=== PATIENT | male | born 1950 | race Caucasian/White ===

== ENCOUNTER 2019-12-25 13:00 | Inpatient (IN) | payer OTHER ==
[~2019-12-25] VITALS: Ht 175.3 cm; Wt 69.7 kg
[~2019-12-25 13:00] MED LIST: ALLEGRA; CIPROFLOXACIN500 M1 PO; CLONAZEPAM 0.50.5 M1 PO; NORCO 5-325 TA1 EACH PO; OMEPRAZOLE; SIMVASTATIN40 MG PO; SLEEP MEDICATION
[2019-12-25 13:01] VITALS: BP 129/83
[2019-12-25] MEDS ORDERED: ARICEPT10 M1 PO (13:16)
[2019-12-25] MEDS ORDERED: NAMENDA 10 MG T10 MG PO (13:17)
[2019-12-25] MEDS ORDERED: OMEPRAZOLE 20 M20 M1 PO (13:17)
[2019-12-25] MEDS ORDERED: LEXAPRO20 MG PO (13:17)
[2019-12-25] MEDS ORDERED: QUETIAPINE FUM200 M1 PO (13:18)
[2019-12-25] MEDS ORDERED: TYLENOL325 M1 PO (13:19)
[2019-12-25] MEDS ORDERED: DULCOLAX STOOL100 M1 PO (13:19)
[2019-12-25] MEDS ORDERED: XANAX 0.25 MG0.25 MG PO (13:20)
[2019-12-25 15:10] LABS: ABSOLUTE NEUTROPHILS 11.5 thou/uL (1.4-8.2); BASOPHILS 0.5 % (0.0-2.0); EOSINOPHILS 2.4 % (0.0-3.0); HEMOGLOBIN 12.4 gm/dL (14.0-18.0); LYMPHOCYTES 9.1 % (24.0-44.0); MCH 27.8 pg (26.0-34.0); MCHC 35.4 g/dL (28.0-37.0); MCV 78.5 fL (80.0-100.0); MONOCYTES 3.7 % (1.0-8.0); PLATELET COUNT 777 thou/uL (150-400); POLYS 84.3 % (36.0-66.0); RBC 4.46 mil/uL (4.50-6.00); RDW 30.3 % (10.5-14.5); WBC 13.7 thou/uL (4.0-11.0)
[2019-12-25 15:27] LABS: CALCIUM 8.8 mg/dL (8.5-10.1); POTASSIUM 3.9 mmol/L (3.5-5.1)
[2019-12-25 15:33] LABS: ALBUMIN 4.2 g/dL (3.4-5.0); TOTAL BILIRUBIN 1.7 mg/dL (0.2-1.0); TOTAL PROTEIN 6.9 g/dL (6.4-8.2)
[2019-12-25 15:42] LABS: ANISOCYTOSIS 3+
[2019-12-25 15:43] LABS: MACROCYTES 1+; MICROCYTES 2+
[2019-12-25 15:47] LABS: OVALOCYTES 2+
[2019-12-25 16:00] LABS: URINE BILIRUBIN NEGATIVE (Negative); URINE BLOOD NEGATIVE (Negative); URINE CLARITY CLEAR; URINE COLOR YELLOW; URINE GLUCOSE-RANDOM* NEGATIVE (Negative); URINE KETONES NEGATIVE (Negative); URINE LEUKOCYTES-REFLEX NEGATIVE (Negative); URINE NITRITE-REFLEX NEGATIVE (Negative); URINE PROTEIN (DIPSTICK) NEGATIVE (Negative); URINE SPECIFIC GRAVITY <= 1.005 (1.005-1.035); URINE UROBILINOGEN 0.2 E.U./dl (0.2-1.0)
[2019-12-25 16:10] LABS: AMP/METHAMP Negative (Negative); BARBITURATES Negative (Negative); BENZODIAZEPINES Negative (Negative); COCAINE Negative (Negative); METHADONE Negative (Negative); OPIATES Negative (Negative); PCP Negative (Negative)
--- NOTE | 2019-12-25 17:15 | NUR ---
FIRST ATTEMPT AT REPORT TO BEHAVIORAL HEALTH
[2019-12-25 17:58] VITALS: BP 126/74
--- NOTE | 2019-12-25 18:24 | NUR ---
1745 PATIENT ARRIVED VIA CART ACCOMPANIED BY EMERGENCY MEDICINE SPECIALIST AND DR RAMIREZ. TRANSPORTED TO BED X2 ASSIST WITH RESISTANCE FROM PATIENT. PATIENT IN BED WITH SIDERAILS UP X4. PATIENT REPOSITIONED FOR COMFORT. PATIENT COMBATIVE WITH STAFF. PATIENT REFUSES VS. NURSE UNABLE TO ASSESS AT TIME OF ADMIT. PATIENT ASLEEP IN BED AT THIS TIME WITH EYES CLOSED. BED ALARM ON. WILL CONTINUE TO OBSERVE AND REPORT OFF TO NEXT SHIFT. RECIEVED REPORT FROM ED DEPT AT 1830.
[2019-12-25 19:35] VITALS: BP 148/96
--- NOTE | 2019-12-26 04:26 | NUR ---
7 CARE TRANSFERED AT 1915 OBSERVED PT IN BED RESTING WITH EYES CLOSED. 193 PT SUPINE WITH EYES CLOSED RESTING, THE ADMIT QUESTION ARE LIMITED R/T PT SEDATION. PT VS MANUAL B/P LYING RIGHT ARM B/P 148/96, P 77, R 16, T 97.7, O2 SAT 95% RA RR EVEN AND NONLABORED. DURING SKIN ASSESSMENT NOTED CONTUSION BI-LAT UE AND LEFT FOREARM SKIN TEAR WITH STERI-STRIPS IN PLACES CLEAN, DRY AND INTACT. UPON AUSCULTATION PT LUNG FIEDLS CLEAR, HT S1, S2 RR, ABD ACTIVE IN ALL FOUR QUADS. PT CAP REFIL <2 SECS. ZERO ACUTE DISTRESS NOTED AT THIS TIME. APPROXIMATLEY 2200 ROUNDS NOTED PT FEET OVER BED RAIL AND BRIEFS OFF. DURING GETTING PT CLEAN AND DRESSES PT BECAME AGITATED THEN COMBATIVE WITH AGRESSION THEN SWUNG ON RN. HCP WAS CONSULTED AND ORDERS RECEIVED HALDOL7.5MG AND ATIVAN 1.5MG IM GIVEN IN ONE SHOT. PT WAS REPOSITION INTO A COMFORTABLE POSITION AND BED WAS IN LOWEST POSITION, LOCKED AND ALARM SET. DURING ROUNDS NOTED PT WAS RESTING WITH EYES CLOSED, RR EVEN AND NONLABORED ON RA. ZERO ACUTE DISTRESS NOTED. WILL CONTINUE TO MONITOR PER [facility] PROTOCOL.
[2019-12-26 09:02] VITALS: BP 157/77
--- NOTE | 2019-12-26 09:04 | NUR ---
ASH contacted Marilin Gaspar with [facility] at [phone]. ASH was told that Marilin does not come in until 10am. ASH left [facility]. ASH contacted pt's Ivelisse Kong; she is also his DPOA. She gave SW hx on pt. Pt is a twin. She is okay with pt's brother Pamela Kong obtaining information about pt. She also said that pt suffers from myelodysplastic syndrome and was dx in 2017. She said in addition to ephedrine pt has adverse reactions to lidocaine. ASH ensured she had 4 digit code. She also added Ivelisse as designated visitor. ASH and Ivelisse agreed that she should wait until Sunday to visit pt as that may upset him, but she does plan to call him. ASH team will continue to follow pt during his stay on this unit.
[2019-12-26 20:06] VITALS: BP 131/84
[2019-12-26 20:23] VITALS: BP 167/75
--- NOTE | 2019-12-27 02:35 | NUR ---
Care of patient assumed at 1915. Patient is sitting in day room in a wheelchair with lap wilda in place. Responds to name, but mumbles incomprehensibly when asked questions. Largely uncooperative, not allowing auscultation of heart, lungs, or bowel. Takes his shirt off and fights staff when trying to get him redressed. Does take HS meds crushhed in applesauce. Assisted to bed shortly after meds.
--- NOTE | 2019-12-27 10:28 | NUR ---
0700 ASSUMED CARE OF PATIENT, PATIENT SITTING IN DAYROOM WITH EYES CLOSED AT THAT TIME. PATIENT IS CALM AND QUIET. MEDICATIONS GIVEN IN OATMEAL CRUSHED WITHOUT DIFFICULTY. PATIENT ASSISTED WITH MEAL, REFUSING TO EAT AT TIMES THEN WHEN LEFT ALONE, A FEW MINUTES PATIENT WILL TAKE A FEW BITES. PATIENT RAISES VOICE AT TIMES AND TELLS GAMEMASTER TO LEAVE HIM ALONE. PATIENT CURSING WHEN ASKED QUESTIONS. UNABLE TO ASSESS AT THIS TIME. WILL CONTINUE TO OBSERVE.
[2019-12-27 13:28] VITALS: BP 159/85
--- NOTE | 2019-12-27 19:25 | NUR ---
AT 1415 OLANZAPINE 10MG IM GIVEN TO LEFT DELTOID FOR INCREASED AGGITATION PER DR'S ORDER. PATIENT SITTING IN WC ATTEMPTING TO GET OUT AND BEING AGGRESIVE WITH CARE. PATIENT DOES NOT LISTEN TO DIRECTION AND WORDS ARE MUMBLED AND DIFFICULTY TO UNDERSTAND. STAFF SITS WITH PATIENT WHILE ATTEMPTING TO GET OUT OF WC. CHAIR ALRM IN PLACE WITH LAP HARPER ON WITH OPENING TO THE FRONT.
[2019-12-27 19:56] VITALS: BP 145/92
--- NOTE | 2019-12-28 03:52 | NUR ---
patient aox1 confused and forgetful. patient incontinent this shift. pericare and barrier cream applied as needed. patient took meds with a lot of encouragement. patient encouraged fluids. patient in bed asleep at this time breathing regular and unlaboured.
[2019-12-28 06:50] LABS: ALBUMIN 3.8 g/dL (3.4-5.0); DIRECT BILIRUBIN 0.2 mg/dL (<0.1-0.2); TOTAL BILIRUBIN 1.8 mg/dL (0.2-1.0); TOTAL PROTEIN 6.6 g/dL (6.4-8.2)
[2019-12-28 08:48] VITALS: BP 159/73
--- NOTE | 2019-12-28 09:33 | NUR ---
0700 ASSUMED CARE OF PATIENT, PATIENT ASLEEP IN BED AT THAT TIME. UNABLE TO GIVE MEDS THIS AM, PATIENT SLEEPING AND UNABLE TO STAY AWAKE TO TAKE MEDS. WILL CONTINUE TO OBSERVE.
--- NOTE | 2019-12-28 13:16 | NUR ---
AT 1200 PM PATIENT BED ALARM SOUNDS OFF. STAFF X 2 IN ROOM, PATIENT UNSTEADY ON FEET. PATIENT CONFUSED AND AGITATED. PATIENT COMBATIVE WITH STAFF WITH CARES. PATIENT TO BATHROOM AND PATIENT WOULD NOT ALLOW STAFF TO HELP. PATIENT IN WC WITH LAP HARPER IN PLACE AND TAKEN TO DAYROOM FOR LUNCH. PATIENT GIVEN AM MEDICATIONS AT THIS TIME CRUSHED WITH FOOD. PATIENT ATE 10% OF MEAL WITH ASSISTANCE OF HIGH SCHOOL SPORTS COACH. PATIENT HALLUCINATING SPEAKING TO SOMEONE AND ARGUING. PATIENT STATES" LETS GO WE HAVE TO GET OUT OF HERE, THEY WILL KILL US HERE". PATIENT CONTINUES TO SIT IN CHAIR IN DAYROOM QUIETLY AT THIS TIME.
--- NOTE | 2019-12-28 19:30 | NUR ---
Care of patient assumed at 1915. Patient is sitting in wheelchair in day room. Appears to be attending to VH/AH, yelling at someone. Unable to participate in interview due to cognitive functioning. Does allow auscultation of heart, lungs and bowel. HS, LS, BS all wNL. Takes HS meds crushed and mixed in yogurt. Remains in day room in wheel chair, continuously attending to hallucnations. Becomes frantic with increasing agitation. PRN Zyprexa IM administered. Patient continues agitated behavior. Placed in recliner to increase comfort. Patient falls asleep within minutes.
[2019-12-28 19:55] VITALS: BP 148/82
--- NOTE | 2019-12-28 21:30 | H ---
[facility] [place] [address] HISTORY AND PHYSICAL Name: BALDEMAR SUN Room #: 520A-A ADM IN M.R.#: [id number] Admission: 12/25/19 Attend Phys: Doug Flores DO Discharge: Date of : 50 Report #: [id number] THIS REPORT FOR: cc: VINNIE - Family physician unknown FAM - Family physician unknown Doug Flores DO ~ CC: Doug [place] unknown DATE OF SERVICE: 12/25/2019 INPATIENT PSYCHIATRIC EVALUATION ATTENDING PHYSICIAN: Doug Flores DO HISTORY OF PRESENT ILLNESS: The patient is a 69-year-old male admitted through the Emergency Room at [facility]. He was sent over from [facility]. The best information we have which is somewhat limited as there is a positive records from [facility] as he had normally been there barely 24 hours, has become increasingly more aggressive, Over the last several weeks, family placed him there. The prison did tell us that he was yelling, came to facility from home yesterday, combative. The patient is a full code at this time. Looks like there is a negative COVID-19 test from 12/24/2019. The patient was born and raised in [place], [place]. He has a twin brother. He did not have service. Also had a medical history as myelodysplastic syndrome diagnosed in 2017. 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 I will give the tried along a call. Also, they have been 17 years. Her number is [phone]. PAST MEDICAL HISTORY: Includes hyperlipidemia, also dementia. PAST SURGICAL HISTORY: Right great toe surgery, tooth extraction. IMMUNIZATION: Unknown immunization history. HOME MEDICATIONS: Include Aricept 10 mg oral at bedtime, Lexapro 20 mg oral daily, memantine 10 mg oral b.i.d., omeprazole 20 mg oral daily, Seroquel 200 mg immediate release at bedtime, stool softener, alprazolam is given 0.25 mg every 6 hours as needed for anxiety. ALLERGIES: EPHEDRINE. PRIMARY CARE PHYSICIAN: Dr. Richard Alvarado. [address] [address] HISTORY AND PHYSICAL Name: BALDEMAR SUN Room #: 520A-A [facility] [place] ..#: [id number] Admission: 12/25/19 Attend Phys: Doug Flores, DO Discharge: Date of : 50 Report #: [id number] SPECIALIST: Dr. Maurice Weiss. REVIEW OF SYSTEMS: Not possible due to poor cooperation. He required IM medication in the ER as well as nursing unit with 74.39 kilos. DIAGNOSTIC DATA: EKG showed sinus rhythm, rate of 82, no STEMI, QTC of 505 milliseconds with borderline prolonged PACs to PVCs noted by the ED physician. LABORATORY DATA: Other information, on hematology, white count 13.7 done on 12/25/2019, H and H 12.4 and 35.0, platelet count was high at 777. Absolute neutrophil count was high at 11.5. Chemistry: Sodium 135, potassium 3.9, chloride 101, bicarbonate 25, anion gap 9, BUN 12, creatinine 1.0, estimated GFR 74, glucose 105, calcium 8.8, total bilirubin 1.7, AST 26, ALT 21, alkaline phosphatase 68, total protein 6.9, albumin 4.2. Urinalysis is negative. UDS was negative. Serum alcohol was negative as well. PHYSICAL EXAMINATION: VITAL SIGNS: This moment, temperature 36.3, pulse 100, respirations 18, BP 157/77, O2 sat 96%. MUSCULOSKELETAL: Seated in wheelchair with a lap wilda in place. MENTAL STATUS EXAMINATION: This is a well-developed, somewhat ill-appearing male, keeping eyes shut even when he is awake. Attention impaired. Concentration impaired. Speech, expletives at times, intermittently spontaneous. Mood and affect, irritable, angry at times, congruent. Unable to assess well for suicidality or homicidality. Similarly, I believe he is delusional. Unclear if he is having active auditory or visual hallucinations. Memory known to be grossly impaired. Insight impaired, judgment impaired. Fund of knowledge well below average. FORMULATION: A 69-year-old male sent from nursing facility to combativeness, agitation. The patient has a history of dementia. Family is concerned that it is FTD more likely than Alzheimer's, which is certainly possible given the onset in the late 60s. DIAGNOSES: Major neurocognitive disorder, unspecified, with behavioral disturbance. ADDITIONAL DIAGNOSES: As follows: History of atrial fibrillation, rate controlled; leukocytosis, myelodysplastic syndrome. PLAN: Evaluate, stabilize, obtain collateral. ESTIMATED LENGTH OF STAY: 10-14 days. We will call today. CURRENT MEDICATIONS: Famotidine 20 mg p.o. daily, aspirin 325 mg p.o. daily, [facility] [address] [place] [address] HISTORY AND PHYSICAL Name: BALDEMAR SUN Room #: 520A-A ADM IN M.R.#: [id number] Admission: 12/25/19 Attend Phys: Doug Flores DO Discharge: Date of : 50 Report #: [id number] memantine 10 mg b.i.d., donepezil 10 mg p.o. at bedtime, docusate 100 mg p.o. b.i.d. for bowel motility, otherwise else PRNs. STRENGTHS: He is insured, has a who has DPOA, actively involved. WEAKNESSES: He has advanced dementia and multiple morbidities. Time spent on interview, review of records, coordination of care is 60 minutes. At least 50% of time was spent on counseling and coordination of care. <ELECTRONICALLY SIGNED> By: Doug Flores DO 12/28/19 2130 1045 1159 Doug Flores DO /nt
[2019-12-29 06:25] LABS: HEMATOCRIT 40.1 % (42.0-52.0); HEMOGLOBIN 12.7 gm/dL (14.0-18.0); MCH 25.4 pg (26.0-34.0); MCHC 31.6 g/dL (28.0-37.0); MCV 80.4 fL (80.0-100.0); RBC 4.99 mil/uL (4.50-6.00); WBC 21.5 thou/uL (4.0-11.0)
--- NOTE | 2019-12-29 07:26 | EKG ---
[facility] [place] [place] [address] ELECTROCARDIOGRAM REPORT Name: BALDEMAR SUN [facility].R.[facility] [id number] Admission: 12/25/19 Attend Phys: Doug Flores DO Discharge: Date of : 50 Report #: [id number] THIS REPORT FOR: cc: FAM - Family physician unknown FAM - Family physician unknown Salvador Alarcon MD [facility] THIS REPORT FOR: //name// [facility] ED Test Date: 2019-12-25 Test Time: 14:14:15 Pat Name: BALDEMAR SUN Department: Room: [facility] Gender: M Radiographic Technologist: . : 1950 Requested By: Brian Valdivia Order Number: [id number] MD: Salvador Alarcon Measurements Intervals [place] Rate: 82 P: MA: QRS: -18 QRSD: 106 T: -5 QT: 432 QTc: 505 Interpretive Statements Sinus rhythm with premature atrial and ventricular complexes Ventricular premature complex Borderline T abnormalities, anterior leads Baseline wander in lead(s) I,aVR,aVL No previous ECG available for comparison Electronically Signed On 12-29-2019 7:25:44 CDT by Salvador Alarcon [email or web address] <ELECTRONICALLY SIGNED> By: Salvador Alarcon MD, [facility] 12/29/19 0725 1414 1414 Salvador Alarcon MD, [facility] /EPI
[2019-12-29 07:48] VITALS: BP 137/66
--- NOTE | 2019-12-29 10:13 | NUR ---
0700 ASSUMED CARE OF PATIENT, PATIENT IN KYLE CHAIR IN DAYROOM AT THAT TIME. PATIENT CALLING OUT NAMES STATING "I NEED TO FIND HIM TO GET DONE". PATIENT UNABLE TO ANSWER QUESTIONS. SPEAKING WORD SALAD AT TIME. WOOL CARDER GIVES MEDICATION CRUSHED IN OATMEAL. PATIENT TAKES WELL. PATIENT SITTING IN KYLE CHAIR IN DAYROOM SLEEPING AT THIS TIME. WILL CONTINUE TO OBSERVE.
--- NOTE | 2019-12-29 12:14 | NUR ---
Pt CONTINUES TO BE UNABLE TO PARTICIPATE IN P.T. EVALUATION DUE TO NEUROCOGNITIVE BEHAVIORS. REQUEST NEW P.T. ORDER ONCE PT DEEMED ABLE TO PARTICIPATE IN THERAPEUTIC INTERVENTIONS COGNITIVE STATUS IMPROVES.
--- NOTE | 2019-12-29 14:53 | NUR ---
ASH spoke with Ivelisse Kong and provided her an update on [facility] visitor protocol. ASH also gave her an update on pt. She cannot understand how pt was fine a few days ago and talking and is now possible at end of life. ASH provided her psychoeducation on the disease process and that things can turn quickly for pt's suffering from a neurocog. disorder. She has mentioned that she wants to take pt home. ASH advised that if it is to a private residence that is fine, but the facility may not accept pt back without clearance from the doctor that he is no longer combative. She asked to speak with Dr. Flores. ASH told her she will relay this message. ASH provided Dr. Flores with an update. SW team will continue to follow pt during her stay on this unit.
--- NOTE | 2019-12-29 17:34 | NUR ---
PATIENT RESTED IN KYLE CHAIR OFF AND ON TODAY. OBSERVED PATIENT REACHING IN AIR HALLUCINATING TALKING WITH SOMEONE. PATIENT YELLS AT TIMES AND COMBATIVE WITH CARES. PATIENT SPEAKS IF ORDERING PEOPLE AROUND IN A JOB SITE. WILL CONTINUE TO OBSERVE
[2019-12-29 20:01] VITALS: BP 162/119
[2019-12-29 22:00] VITALS: BP 162/119
--- NOTE | 2019-12-30 00:49 | NUR ---
Assumed care of patient this pm shift. Patient sitting in the mileu in a reclining chair with peers. Patient in good spirits. Patient is alert and oriented to self only. Patient recieved a phone call earlier in the shift and was listening to the other end and perked up as he recognized the caller. Patient rambles when speaking and is mostly confused. Patient is a falls risk and has a yellow shirt on and yellow nonskid socks. Patient does not do as well with cares and gets very resistant with cares. Patients assessment shows clear breath sounds, hypoactive bowel sounds, and s1 s2 heard with auscultation. Patient takes medications crushed in yogurt. We will continue to monitor per hospital policy.
[2019-12-30 08:54] VITALS: BP 149/96
--- NOTE | 2019-12-30 10:51 | NUR ---
0700 ASSUMED CARE OF PATIENT, PATIENT SITTING IN KYLE CHAIR IN DAYROOM AT THAT TIME. PATIENT WITH EYES CLOSED. 0820 PATIENT AWAKE MEDICATIONS GIVEN CRUSHED IN APPLESAUCE. PATIENT ASSISTED BY STAFF WITH BREAKFAST, PATIENT ATE 95% OF MEAL. PATIENT SAYS GOOD MORNING TO DOCUMENT REVIEW SPECIALIST THEN WORD SALAD AFTER THAT. PATIENT UNABLE TO ANSWER QUESTIONS. VS STABLE. WILL CONTINUE TO OBSERVE.
[2019-12-30 20:13] VITALS: BP 140/72
--- NOTE | 2019-12-30 23:57 | NUR ---
Assumed care on 12/30/19 @ 19:15, in bed at the start of the shift, eyes closed, respirations even and unlabored, no distress noted. Bed in low position, bed alarm set, will continue to monitor q 12 minutes for patient safety.
--- NOTE | 2019-12-31 08:13 | NUR ---
PT SITTING IN DINING ROOM PT NEEDED ASSISTANCE WITH EATING. PT TOOK MEDS IN OATMEAL CRUSHED. PT DID TAKE ONE BITE OF OATMEAL, PT DIDN'T WANT ANY MORE OATMEAL. ATTEMPTED TO OFFER MILK, PT UNABLE TO DRINK OUT OF A STRAW. PT LUNGS CLEAR. PT DIDN'T APPEAR IN ANY DISTRESS.
[2019-12-31] MEDS ORDERED: DEPAKOTE SPRIN125 MG PO (11:56)
[2019-12-31] MEDS ORDERED: OLANZAPINE10 M2 IM (11:56)
[2019-12-31] MEDS ORDERED: SEROQUEL 100 M100 M1 PO (11:57)
--- NOTE | 2019-12-31 12:57 | NUR ---
SW D/C NOTE SW faxed d/c docs and COVID-19 results to both [facility] and [facility]. ASH will submit these docs to pt's hospital files. No other needs for SW team to address at this time.
--- NOTE | 2019-12-31 13:20 | NUR ---
PT DRESSED X2 STAFF AND PLACED IN W/C. PT KEPT SLIPPING DOWN IN W/C AND MAKING JERKING MOVEMENTS. PT WAS TALKING AND WAVING ARMS. PT NEEDED PULLED UP IN CHAIR A COUPLE OF TIMES BEFORE HEADING DOWN TO ER FOR TRANSPORT. PT TRANSFERED WITH SECURITY ASSIST TO W/C. PT SECURED WITH SEAT BELT AND LAP SUPPORT.
--- NOTE | 2019-12-31 14:30 | NUR ---
[facility] RE[facility]
== END 2019-12-31 13:15 | disposition hospice, inpatient (51) | DRG 57 ==
LOC: ER 13:00 → SBH 18:19 → EROBS 18:19 → SBH 18:21
PROVIDERS: Emergency Medicine; Hospitalist; ADMIT Psychiatry & Neurology Psychiatry; ATTEND Psychiatry & Neurology Psychiatry
DX: G30.9 Alzheimer's disease, unspecified (principal); F01.51 Vascular dementia, unspecified severity, with behavioral disturbance; F02.81 Dementia in other diseases classified elsewhere, unspecified severity, with behavioral disturbance; E78.00 Pure hypercholesterolemia, unspecified; R45.1 Restlessness and agitation; E78.5 Hyperlipidemia, unspecified; D72.829 Elevated white blood cell count, unspecified; D47.3 Essential (hemorrhagic) thrombocythemia; I48.91 Unspecified atrial fibrillation; Z88.8 Allergy status to other drugs, medicaments and biological substances; Z79.899 Other long term (current) drug therapy
CPT/HCPCS: 10880